=== PATIENT | male | born 1965 | race Caucasian/White ===

== ENCOUNTER 2016-11-01 22:45 | Emergency (ER) | payer MEDICAID ==
[2016-11-01] MEDS ORDERED: Acetaminophen/HYDROcodone 325-10 MG Tab PO ONE (23:59)
[2016-11-01] MEDS ORDERED: Cyclobenzaprine 10 MG Tab PO ONE (23:59)
--- NOTE | 2016-11-02 00:29 | EDM.PDOC ---
ED HISTORY OF PRESENT ILLNESS - General Chief Complaint: Respiratory Problem Stated Complaint: FELL, HIT CHEST ON ROCK, TROUBLE BREATHING Time Seen by Provider: 11/01/16 23:10 Source of Information: Reports: Patient History Limitations: Reports: No limitations - History of Present Illness INITIAL COMMENTS - FREE TEXT/NARRATIVE: c/o of chest discomfort anterior and pain with inspiration. Fishing earlier and slipped and fell , sticking mid upper chest on rock. red area to upper chest. No c/o f other injury. Severity: moderate Location, General: Reports: chest Improves with: Reports: Immobilization Worsens with: Reports: Movement Context, General: Reports: Other (fall) Associated Symptoms (General): Reports: chest pain, shortness of breath. 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 [No Known Home Meds] 11/01/16 [History] Past Medical History - Infectious Disease History Infectious Disease History: Reports: Mumps Social & Family History - Family History Family Medical History: Noncontributory - Tobacco Use Smoking Status *Q: Never Smoker - Caffeine Use Caffeine Use: Reports: Coffee - Recreational Drug Use Recreational Drug Use: No ED ROS GENERAL - Review of Systems Review Of Systems: See Below Constitutional: Reports: no symptoms HEENT: Reports: No symptoms Respiratory: Reports: Pleuritic Chest Pain Cardiovascular: Reports: No symptoms Endocrine: Reports: no symptoms GI/Abdominal: Reports: No symptoms : Reports: no symptoms Musculoskeletal: Reports: other (anterior mid upper chest) Neurological: Reports: No Symptoms Psychiatric: Reports: No symptoms ED EXAM, GENERAL - Physical Exam Exam: See Below Exam Limited By: No limitations General Appearance: alert, moderate distress Eye Exam: bilateral eye: EOMI Ears: normal external exam Nose: normal inspection. No: nasal drainage Throat/Mouth: Normal inspection Head: atraumatic, normocephalic Neck: normal inspection, full range of motion Respiratory/Chest: no respiratory distress, lungs clear, decreased breath sounds Cardiovascular: normal peripheral pulses GI/Abdominal: normal bowel sounds, soft, non tender Extremities: normal inspection Neurological: alert, oriented, normal cognition Skin Exam: Warm, Dry, Intact, Wound/incision (superficial transverse abrasion mid to upper chest.) Course - Vital Signs Last Recorded V/S: Last Vital Signs Temp 98.7 F 11/02/16 00:53 Pulse 98 11/02/16 00:53 Resp 16 11/02/16 00:53 BP 141/80 H 11/02/16 00:53 Pulse Ox 100 11/02/16 00:53 - Orders/Labs/Meds Meds: Medications Discontinued Medications Generic Name Dose Route Start Last Admin Trade Name Freq PRN Reason Stop Dose Admin Hydrocodone Bitart/Acetaminophen Confirm 11/02/16 00:42 11/02/16 01:11 Logan 325-10 Mg Administered 11/02/16 00:43 Not Given Dose 2 tab .ROUTE .STK-MED ONE Cyclobenzaprine HCl Confirm 11/02/16 00:42 11/02/16 01:11 Flexeril Administered 11/02/16 00:43 Not Given Dose 20 mg .ROUTE .STK-MED ONE - Radiology Interpretation Free Text/Narrative:: No riib fracture noted Departure - Departure Time of Disposition: 00:26 Disposition: Home, Self-Care 01 Condition: good Clinical Impression: Sternal contusion Qualifiers: Encounter type: initial encounter Qualified Code(s): S20.20XA - Contusion of thorax, unspecified, initial encounter Instructions: Chest Contusion, [id number] Forms: ED Department Discharge Additional Instructions: hydrocodone 10/325 one every 6 hours as needed for pain # 6 Ibuprofen 600mg every 6 hours as needed for moderate pain deep breathing exercises every 2 hours while awake follow up if worsening pain, or difficulty breathing
[2016-11-02] MEDS ORDERED: Cyclobenzaprine 10 MG Tab ONE (00:42)
[2016-11-02] MEDS ORDERED: Acetaminophen/HYDROcodone 325-10 MG Tab ONE (00:42)
[2016-11-02 00:54] VITALS: BP 141/80
== END 2016-11-02 00:52 | disposition home or self-care (01) ==
LOC: DL.ED 22:45
DX: S20.20XA Contusion of thorax, unspecified, initial encounter (principal); Z88.2 Allergy status to sulfonamides; W01.10XA Fall on same level from slipping, tripping and stumbling with subsequent striking against unspecified object, initial encounter
CPT/HCPCS: 71111; 99284; A9270

== ENCOUNTER 2016-12-20 19:45 | Emergency (ER) | payer MEDICAID ==
[2016-12-20 19:51] VITALS: BP 138/82
[2016-12-20] MEDS ORDERED: Lidocaine/EPINEPHrine/Tetracaine Soln 5 ML Each TOP ONE (20:16)
--- NOTE | 2016-12-20 20:16 | EDM.PDOC ---
ED HPI GENERAL MEDICAL PROBLEM - General Chief Complaint: General Stated Complaint: BIT INTO BLOOD VESSEL MOUTH, [id number] Time Seen by Provider: 12/20/16 20:09 Source of Information: Reports: Patient History Limitations: Reports: No Limitations - History of Present Illness INITIAL COMMENTS - FREE TEXT/NARRATIVE: c/o bleeding to inner lower lip. States bit bottom lip approximately 10 minutes UI ARCHITECT has had blood vessel like "blood blister " for long time. Onset: Today Severity: Mild - Related Data Allergies Allergy/AdvReac Type Severity Reaction Status Date / Time sulfamethoxazole Allergy UNKNOWN Verified 12/20/16 19:51 [From Bactrim] trimethoprim [From Bactrim] Allergy UNKNOWN Verified 12/20/16 19:51 Home Meds: Home Meds . [No Known Home Meds] 11/01/16 [History] Past Medical History - Past Health History Medical/Surgical History: Denies Medical/Surgical History - Infectious Disease History Infectious Disease History: Reports: Mumps Social & Family History - Family History Family Medical History: Noncontributory - Tobacco Use Smoking Status *Q: Never Smoker - Caffeine Use Caffeine Use: Reports: Coffee - Recreational Drug Use Recreational Drug Use: No ED ROS GENERAL - Review of Systems Review Of Systems: ROS reveals no pertinent complaints other than HPI. ED EXAM, GENERAL - Physical Exam Exam: See Below Exam Limited By: No Limitations General Appearance: Alert, Anxious, Mild Distress Ears: Normal External Exam Nose: Normal Inspection Throat/Mouth: Other (puncture lesion to right inner lower lip with active bleeding) Head: Atraumatic, Normocephalic Neck: Normal Inspection Respiratory/Chest: No Respiratory Distress Cardiovascular: Regular Rate, Rhythm Course - Vital Signs Last Recorded V/S: Last Vital Signs Temp 98.2 F 12/20/16 19:48 Pulse 110 H 12/20/16 19:48 Resp 18 12/20/16 19:48 BP 138/82 12/20/16 19:48 Pulse Ox 96 12/20/16 19:48 - Orders/Labs/Meds Meds: Medications Discontinued Medications Generic Name Dose Route Start Last Admin Trade Name Freq PRN Reason Stop Dose Admin Lidocaine/Tetracaine 5 ml 12/20/16 20:16 12/20/16 20:24 Let Soln TOP 12/20/16 20:17 5 ml ONETIME ONE Administration - Re-Assessments/Exams Free Text/Narrative Re-Assessment/Exam: 12/21/16 02:51 Pressure applied with slight decrease, continued bleeding. Controlled with application and point pressure of Lido/epi/tetracain with sterile swap. Departure - Departure Time of Disposition: 21:01 Disposition: Home, Self-Care 01 Condition: good Clinical Impression: Mucosal bleeding - Discharge Information Instructions: Oral Mucositis Referrals: PCP,None [Ordering Only Provider] - Forms: ED Department Discharge Additional Instructions: cool pack to lower lip no use of straws x 24 hours, apply pressure if recurrent bleeding return if unable to stop avoid hard foods x 24 hours and care with brushing lower teeth on right side
== END 2016-12-20 21:27 | disposition home or self-care (01) ==
LOC: DL.ED 19:45
DX: R58 Hemorrhage, not elsewhere classified (principal); Z88.2 Allergy status to sulfonamides; Z88.8 Allergy status to other drugs, medicaments and biological substances
CPT/HCPCS: 99282; A9270

== ENCOUNTER 2019-07-25 01:32 | Emergency (ER) | payer MEDICAID ==
[2019-07-25] MEDS ORDERED: fentaNYL 100 MCG/2 ML SDV IVPUSH ONE (01:43)
[2019-07-25] MEDS ORDERED: LORazepam 2 MG/ML Syringe IVPUSH ONE (01:43)
[2019-07-25] MEDS ORDERED: HYDROmorphone 1 MG/ML Syringe IVPUSH ONE (02:41)
--- NOTE | 2019-07-25 02:41 | EDM.PDOC ---
"ED HPI GENERAL MEDICAL PROBLEM - General Chief Complaint: Lower Extremity Injury/Pain Stated Complaint: FELL ON ICE Time Seen by Provider: 07/25/19 06:14 Source of Information: Reports: Patient History Limitations: Reports: No Limitations - History of Present Illness INITIAL COMMENTS - FREE TEXT/NARRATIVE: ED via w/c with c/o pain to right hip and back, states getting out of [place] and slipped on ice landing towards left side. but pain with movement and spasm type. Initially called EMS but requested their assistance to private vehicle. No loss of consciousness Did not hit hed. 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 [No Known Home Meds] 11/01/16 [History] Past Medical History - Past Health History Medical/Surgical History: Denies Medical/Surgical History Musculoskeletal History: Reports: Arthritis, Fracture, Other (See Below) Other Musculoskeletal History: L4 L5 had twisted it iin the past. Needs carpal tunnel to maribel hands. Neurological History: Reports: Concussion - Infectious Disease History Infectious Disease History: Reports: Mumps Social & Family History - Family History Family Medical History: Noncontributory - Tobacco Use Smoking Status *Q: Never Smoker - Caffeine Use Caffeine Use: Reports: Coffee - Recreational Drug Use Recreational Drug Use: No Review of Systems - Review of Systems Review Of Systems: Comprehensive ROS is negative, except as noted in HPI. ED EXAM, GENERAL - Physical Exam Exam: See Below Exam Limited By: No Limitations General Appearance: Alert, Moderate Distress (yelling, moaning), Obese Eye Exam: Bilateral Eye: EOMI, PERRL Course - Vital Signs Last Recorded V/S: Last Vital Signs Temp 97.4 F 07/25/19 05:46 Pulse 72 07/25/19 05:46 Resp 14 07/25/19 05:46 BP 114/69 07/25/19 05:46 Pulse Ox 100 07/25/19 05:46 - Orders/Labs/Meds Orders: Active Orders 24 hr Category Date Time Status Lumbar Spine wo Cont [CT] Urgent Exams 07/25/19 02:43 Taken Pelvis wo Cont [CT] Urgent Exams 07/25/19 02:42 Taken Meds: Medications Discontinued Medications Generic Name Dose Route Start Last Admin Trade Name Deejay PRN Reason Stop Dose Admin Fentanyl 50 mcg 07/25/19 01:43 07/25/19 01:59 Sublimaze IVPUSH 07/25/19 01:44 50 mcg ONETIME ONE Administration Hydromorphone HCl 1 mg 07/25/19 02:41 07/25/19 03:23 Dilaudid IVPUSH 07/25/19 02:42 1 mg ONETIME ONE Administration Lorazepam 1 mg 07/25/19 01:43 07/25/19 01:58 Ativan IVPUSH 07/25/19 01:44 1 mg ONETIME ONE Administration - Radiology Interpretation Free Text/Narrative:: [facility] Final Radiology Report Call: [phone] assistance Online chat: [email or web address] Name: EVIE GOLD Age: 54Years M Date: 07/25/2019 SSN: -- : [id number] Study: CT SPINE LUMBAR WO Requesting Physician: REY JUARES Images: [id number] Addl Studies: Provided Clinical History: Contrast: Without Contrast Medium: Contrast Amount: Contrast Method: Page 1 of 2 PROCEDURE INFORMATION: Exam: CT Lumbar Spine Without Contrast Exam date and time: 07/25/2019 3:08 AM Age: 54 years old Clinical indication: Other: Fell getting out of suv, pain TECHNIQUE: Imaging protocol: Computed tomography images of the lumbar spine without contrast. Radiation optimization: All CT scans at this facility use at least one of these dose optimization techniques: automated exposure control; mA and/or kV adjustment per patient size (includes targeted exams where dose is matched to clinical indication); or iterative reconstruction. COMPARISON: No relevant prior studies available. FINDINGS: Vertebrae: No acute fracture. Normal alignment. Discs/Spinal canal/Neural foramina: The lumbar spine demonstrates moderate discogenic and apophyseal joint degenerative changes at multiple levels. There is loss of disc space height from L3 through S1 most severe at L5-S1. There is no focal disc herniation or cord compression. No significant canal stenosis. Soft tissues: Unremarkable. IMPRESSION: 1. No acute fracture or dislocation. 2. Mild lumbar spondylosis changes as discussed above Thank you for allowing us to participate in the care of your patient. EVIE GOLD | Final Radiology Report CONFIDENTIALITY STATEMENT This report is intended only for use by the referring physician, and only in accordance with law. If you received this in error, call [phone]. Page 2 of 2 Dictated and Authenticated by: Donovan Linn [facility] Final Radiology Report Call: [phone] assistance Online chat: [email or web address] Name: EVIE GOLD Age: 54Years M Date: 07/25/2019 SSN: -- : 1965 Study: CT PELVIS WO Requesting Physician: REY JUARES Images: [id number] Addl Studies: Provided Clinical History: Contrast: Without Contrast Medium: Contrast Amount: Contrast Method: CONFIDENTIALITY STATEMENT This report is intended only for use by the referring physician, and only in accordance with law. If you received this in error, call [phone]. Page 1 of 1 PROCEDURE INFORMATION: Exam: CT Pelvis Without Contrast; Skeletal Exam date and time: 07/25/2019 3:08 AM Age: 54 years old Clinical indication: Other: Fell getting out of suv, pain TECHNIQUE: Imaging protocol: Computed tomography images of the pelvis without contrast. Exam focused on the skeletal structures. Radiation optimization: All CT scans at this facility use at least one of these dose optimization techniques: automated exposure control; mA and/or kV adjustment per patient size (includes targeted exams where dose is matched to clinical indication); or iterative reconstruction. COMPARISON: No relevant prior studies available. FINDINGS: Bones/joints: Unremarkable. No acute fracture. No dislocation. Soft tissues: Unremarkable. IMPRESSION: No acute findings. Thank you for allowing us to participate in the care of your patient. Dictated and Authenticated by: Donovan Linn MD 07/25/2019 6:00 AM Central Time ([place] & [place]) - Re-Assessments/Exams Free Text/Narrative Re-Assessment/Exam: 07/25/19 06:20 Preference to lie on right side, increased pain with movement. Improved following medication pain decreased to 4/10, sleeping awaiting for radiology report. Studies unremarkable, results reviewed with patient and family. Up ambulatory steady, slow. Departure - Departure Time of Disposition: 06:04 Disposition: Home, Self-Care 01 Condition: Good Clinical Impression: Muscle spasm, Acute right hip pain Fall Qualifiers: Encounter type: initial encounter Qualified Code(s): W19.XXXA - Unspecified fall, initial encounter - Discharge Information *PRESCRIPTION DRUG MONITORING PROGRAM REVIEWED*: No *COPY OF PRESCRIPTION DRUG MONITORING REPORT IN PATIENT MICAH: No Instructions: Musculoskeletal Pain Forms: ED Department Discharge Additional Instructions: Ibuprofen 600mg every 6 hours as needed flexeril 10mg one every 8 hours as needed for spasm hydrocodone 10/325 one every 6 hours as needed for severe pain rest light activity ice to hip clinic follow up on sunday if continued pain Sepsis Event Note - Evaluation Sepsis Screening Result: No Definite Risk - Focused Exam Vital Signs: Vital Signs Temp Pulse Resp BP Pulse Ox 07/25/19 05:46 97.4 F 72 14 114/69 100 07/25/19 03:27 97.8 F 63 14 102/57 L 96 07/25/19 01:43 98.6 F 80 16 136/76 96 Date Exam was Performed: 07/25/19 Time Exam was Performed: 06:03 - My Orders Last 24 Hours: My Active Orders 07/25/19 02:42 Pelvis wo Cont [CT] Urgent 07/25/19 02:43 Lumbar Spine wo Cont [CT] Urgent - Assessment/Plan Last 24 Hours: My Active Orders 07/25/19 02:42 Pelvis wo Cont [CT] Urgent 07/25/19 02:43 Lumbar Spine wo Cont [CT] Urgent"
[2019-07-25 05:47] VITALS: BP 114/69; PULSE 72
[2019-07-25] MEDS ORDERED: Ketorolac 30 MG/ML SDV IVPUSH ONE (06:07)
== END 2019-07-25 06:22 | disposition home or self-care (01) ==
LOC: DL.ED 01:32
DX: M25.551 Pain in right hip (principal); M62.838 Other muscle spasm; M19.90 Unspecified osteoarthritis, unspecified site; Z88.2 Allergy status to sulfonamides; W00.0XXA Fall on same level due to ice and snow, initial encounter
CPT/HCPCS: 72131; 72192; 96374; 96375; 99284; J1170; J1885; J2060; J3010

== ENCOUNTER 2020-11-21 21:18 | Emergency (ER) | payer BC, MEDICAID ==
--- NOTE | 2020-11-21 21:59 | EDM.PDOC ---
"ED HPI GENERAL MEDICAL PROBLEM - General Stated Complaint: TOTAL EXHAUSTION/UPSET STOMACH Time Seen by Provider: 11/21/20 22:55 Source of Information: Reports: Patient History Limitations: Reports: No Limitations - History of Present Illness INITIAL COMMENTS - FREE TEXT/NARRATIVE: This 55 yo male patient reports to the ED due to abdominal pain. The patient reports his pain is a burning pain on both sides of his abdomen that has been present all day. The patient also reports he has had pressure in his head that has come and gone since he had COVID in May. The patient also reports he has been having difficulties remembering things since May also. The patient's family reports the patient had confused conversation prior to coming to the ED. The patient also reports a brief episode of chest pain earlier today. The patient reports he has not been able to eat or drink much due to the abdominal pain. Onset: Unknown/Unsure Duration: Constant, Other Location: Reports: Head, Chest, Abdomen Quality: Reports: Ache, Pressure, Other Severity: Moderate Improves with: Reports: None Worsens with: Reports: None Context: Reports: Other Associated Symptoms: Reports: Nausea/Vomiting Right Headache Pain Score (Numeric/FACES): 6 - Related Data Allergies Allergy/AdvReac Type Severity Reaction Status Date / Time sulfamethoxazole Allergy Difficulty Verified 11/21/20 22:28 [From Bactrim] Breathing trimethoprim [From Bactrim] Allergy Difficulty Verified 11/21/20 22:28 Breathing Home Meds: Home Meds Ibuprofen [Advil] 200 mg PO ASDIRECTED PRN 11/21/20 [History] Past Medical History - Past Health History Medical/Surgical History: Denies Medical/Surgical History Musculoskeletal History: Reports: Arthritis, Fracture, Other (See Below) Other Musculoskeletal History: L4 L5 had twisted it iin the past. Needs carpal tunnel to maribel hands. Neurological History: Reports: Concussion - Infectious Disease History Infectious Disease History: Reports: Mumps Social & Family History - Family History Family Medical History: No Pertinent Family History - Caffeine Use Caffeine Use: Reports: Coffee ED ROS GENERAL - Review of Systems Review Of Systems: Comprehensive ROS is negative, except as noted in HPI. ED EXAM, GENERAL - Physical Exam Exam: See Below Exam Limited By: No Limitations General Appearance: Alert, WD/WN, No Apparent Distress Eye Exam: Bilateral Eye: EOMI, Normal Inspection, PERRL Ears: Normal External Exam, Normal Canal, Hearing Grossly Normal, Normal TMs Nose: Normal Inspection, Normal Mucosa, No Blood Throat/Mouth: Normal Inspection, Normal Lips, Normal Teeth, Normal Gums, Normal Oropharynx, Normal Voice, No Airway Compromise Head: Atraumatic, Normocephalic Neck: Normal Inspection, Supple, Non-Tender, Full Range of Motion Respiratory/Chest: No Respiratory Distress, Lungs Clear, Normal Breath Sounds, No Accessory Muscle Use, Chest Non-Tender Cardiovascular: Normal Peripheral Pulses, Regular Rate, Rhythm, No Edema, No Gallop, No JVD, No Murmur, No Rub GI/Abdominal: Normal Bowel Sounds, Soft, Non-Tender, No Organomegaly, No Distention, No Abnormal Bruit, No Mass (Male) Exam: Deferred Rectal (Males) Exam: Deferred Back Exam: Normal Inspection, Full Range of Motion, NT Extremities: Normal Inspection, Normal Range of Motion, Non-Tender, Normal Capillary Refill, No Pedal Edema Neurological: Alert, Oriented, CN II-XII Intact, Normal Cognition, Normal Gait, Normal Reflexes, No Motor/Sensory Deficits Psychiatric: Normal Affect, Normal Mood Skin Exam: Warm, Dry, Intact, Normal Color, No Rash Lymphatic: No Adenopathy #1 Interpretation EKG Date: 11/21/20 Time: 21:38 Rhythm: NSR Rate (Beats/Min): 67 Raccoon: Normal P-Wave: Present QRS: Normal ST-T: Normal QT: Normal Comparison: NA - No Prior EKG Course - Vital Signs Last Recorded V/S: Last Vital Signs Temp 36.9 C 11/21/20 21:30 Pulse 73 11/21/20 21:30 Resp 14 11/21/20 21:30 BP 110/79 11/21/20 21:30 Pulse Ox 98 11/21/20 21:30 - Orders/Labs/Meds Orders: Active Orders 24 hr Category Date Time Status EKG Documentation Completion [RC] STAT Care 11/21/20 21:33 Active CULTURE BLOOD [BC] Stat Lab 11/21/20 21:50 Results Labs: Laboratory Tests 11/21/20 11/21/20 11/21/20 Range/Units 21:35 21:50 21:50 WBC 6.5 (5.0-10.0) 10^3/uL RBC 4.27 L (4.6-6.2) 10^6/uL Hgb 13.2 L (14.0-18.0) g/dL Hct 40.5 (40.0-54.0) % MCV 94.8 (80-100) fL MCH 30.9 (27.0-34.0) pg MCHC 32.6 L (33.0-35.0) g/dL Plt Count 159 (150-450) 10^3/uL Neut % (Auto) 85.2 H (42.2-75.2) % Lymph % (Auto) 9.1 L (20.5-50.1) % [place] % (Auto) 5.4 (2-8) % Eos % (Auto) 0.3 L (1.0-3.0) % Baso % (Auto) 0.0 (0.0-1.0) % Sodium 135 L (136-145) mmol/L Potassium 4.2 (3.5-5.1) mmol/L Chloride 99 (98-107) mmol/L Carbon Dioxide 27 (21-32) mmol/L Anion Gap 13.2 H (7-13) mEq/L BUN 21 H (7-18) mg/dL Creatinine 0.85 (0.70-1.30) mg/dL Est Cr Clr Drug Dosing 69.44 mL/min Estimated GFR (MDRD) > 60 BUN/Creatinine Ratio 24.7 (No establ ref range) Glucose 127 H (70-99) mg/dL Lactic Acid (0.4-2.0) mmol/L Calcium 7.9 L (8.5-10.1) mg/dL Total Bilirubin 0.7 (0.2-1.0) mg/dL AST 19 (15-37) U/L ALT 27 (16-63) U/L Alkaline Phosphatase 67 (46-116) U/L Ammonia (11-32) umol/L Troponin I < 0.017 (0.000-0.056) ng/mL Total Protein 6.6 (6.4-8.2) g/dL Albumin 3.6 (3.4-5.0) g/dL Globulin 3.0 Albumin/Globulin Ratio 1.2 Amylase 79 (25-115) U/L Lipase 81 (73-393) U/L Urine Color (YELLOW) Urine Appearance (CLEAR) Urine pH (5.0-9.0) Ur Specific [place] (1.005-1.030) Urine Protein (NEGATIVE) Urine Glucose (UA) (NEGATIVE) Urine Ketones (NEGATIVE) Urine Occult Blood (NEGATIVE) Urine Nitrite (NEGATIVE) Urine Bilirubin (NEGATIVE) Urine Urobilinogen (0.2-1.0) mg/dL Ur Leukocyte Esterase (NEGATIVE) Salicylates (2.8-20(Therapeutic)) mg/dL Acetaminophen 0 L (10-30 (Therapeutic)) ug/mL Ethyl Alcohol < 3 (0) mg/dL Influenza Type A RNA Negative (NEGATIVE) Influenza Type B RNA Negative (NEGATIVE) SARS-CoV-2 RNA (NAT) Negative (NEGATIVE) 11/21/20 11/21/20 11/21/20 Range/Units 21:50 21:50 21:50 WBC (5.0-10.0) 10^3/uL RBC (4.6-6.2) 10^6/uL Hgb (14.0-18.0) g/dL Hct (40.0-54.0) % MCV (80-100) fL MCH (27.0-34.0) pg MCHC (33.0-35.0) g/dL Plt Count (150-450) 10^3/uL Neut % (Auto) (42.2-75.2) % Lymph % (Auto) (20.5-50.1) % [place] % (Auto) (2-8) % Eos % (Auto) (1.0-3.0) % Baso % (Auto) (0.0-1.0) % Sodium (136-145) mmol/L Potassium (3.5-5.1) mmol/L Chloride (98-107) mmol/L Carbon Dioxide (21-32) mmol/L Anion Gap (7-13) mEq/L BUN (7-18) mg/dL Creatinine (0.70-1.30) mg/dL Est Cr Clr Drug Dosing mL/min Estimated GFR (MDRD) BUN/Creatinine Ratio (No establ ref range) Glucose (70-99) mg/dL Lactic Acid 0.9 (0.4-2.0) mmol/L Calcium (8.5-10.1) mg/dL Total Bilirubin (0.2-1.0) mg/dL AST (15-37) U/L ALT (16-63) U/L Alkaline Phosphatase (46-116) U/L Ammonia 19 (11-32) umol/L Troponin I (0.000-0.056) ng/mL Total Protein (6.4-8.2) g/dL Albumin (3.4-5.0) g/dL Globulin Albumin/Globulin Ratio Amylase (25-115) U/L Lipase (73-393) U/L Urine Color (YELLOW) Urine Appearance (CLEAR) Urine pH (5.0-9.0) Ur Specific [place] (1.005-1.030) Urine Protein (NEGATIVE) Urine Glucose (UA) (NEGATIVE) Urine Ketones (NEGATIVE) Urine Occult Blood (NEGATIVE) Urine Nitrite (NEGATIVE) Urine Bilirubin (NEGATIVE) Urine Urobilinogen (0.2-1.0) mg/dL Ur Leukocyte Esterase (NEGATIVE) Salicylates < 2.8 L (2.8-20(Therapeutic)) mg/dL Acetaminophen (10-30 (Therapeutic)) ug/mL Ethyl Alcohol (0) mg/dL Influenza Type A RNA (NEGATIVE) Influenza Type B RNA (NEGATIVE) SARS-CoV-2 RNA (NAT) (NEGATIVE) 11/21/20 Range/Units 23:06 WBC (5.0-10.0) 10^3/uL RBC (4.6-6.2) 10^6/uL Hgb (14.0-18.0) g/dL Hct (40.0-54.0) % MCV (80-100) fL MCH (27.0-34.0) pg MCHC (33.0-35.0) g/dL Plt Count (150-450) 10^3/uL Neut % (Auto) (42.2-75.2) % Lymph % (Auto) (20.5-50.1) % [place] % (Auto) (2-8) % Eos % (Auto) (1.0-3.0) % Baso % (Auto) (0.0-1.0) % Sodium (136-145) mmol/L Potassium (3.5-5.1) mmol/L Chloride (98-107) mmol/L Carbon Dioxide (21-32) mmol/L Anion Gap (7-13) mEq/L BUN (7-18) mg/dL Creatinine (0.70-1.30) mg/dL Est Cr Clr Drug Dosing mL/min Estimated GFR (MDRD) BUN/Creatinine Ratio (No establ ref range) Glucose (70-99) mg/dL Lactic Acid (0.4-2.0) mmol/L Calcium (8.5-10.1) mg/dL Total Bilirubin (0.2-1.0) mg/dL AST (15-37) U/L ALT (16-63) U/L Alkaline Phosphatase (46-116) U/L Ammonia (11-32) umol/L Troponin I (0.000-0.056) ng/mL Total Protein (6.4-8.2) g/dL Albumin (3.4-5.0) g/dL Globulin Albumin/Globulin Ratio Amylase (25-115) U/L Lipase (73-393) U/L Urine Color Yellow (YELLOW) Urine Appearance Clear (CLEAR) Urine pH 5.5 (5.0-9.0) Ur Specific [place] >= 1.030 (1.005-1.030) Urine Protein Negative (NEGATIVE) Urine Glucose (UA) Negative (NEGATIVE) Urine Ketones Negative (NEGATIVE) Urine Occult Blood Negative (NEGATIVE) Urine Nitrite Negative (NEGATIVE) Urine Bilirubin Negative (NEGATIVE) Urine Urobilinogen 1.0 (0.2-1.0) mg/dL Ur Leukocyte Esterase Negative (NEGATIVE) Salicylates (2.8-20(Therapeutic)) mg/dL Acetaminophen (10-30 (Therapeutic)) ug/mL Ethyl Alcohol (0) mg/dL Influenza Type A RNA (NEGATIVE) Influenza Type B RNA (NEGATIVE) SARS-CoV-2 RNA (NAT) (NEGATIVE) Meds: Medications Discontinued Medications Generic Name Dose Route Start Last Admin Trade Name Freq PRN Reason Stop Dose Admin Sodium Chloride 1,000 mls @ 999 mls/hr 11/21/20 23:05 11/21/20 23:14 Normal Saline IV 11/22/20 00:05 999 mls/hr .BOLUS ONE Administration - Radiology Interpretation Free Text/Narrative:: [facility] [place] [facility] Final Radiology Report Call: [phone] assistance Online chat: [email or web address] Name: JAIRO GOLD Age: 55Years M Date: 11/21/2020 SSN: -- : [id number] Study: CT HEAD WO CONT Requesting Physician: Yariel Juan Images: [id number] Addl Studies: Provided Clinical History: Altered mentation Contrast: Without Contrast Medium: Contrast Amount: Contrast Method: Page 1 of 2 PROCEDURE INFORMATION: Exam: CT Head Without Contrast Exam date and time: 11/21/2020 11:40 PM Age: 55 years old Clinical indication: Other: Altered mentation TECHNIQUE: Imaging protocol: Computed tomography of the head without contrast. Radiation optimization: All CT scans at this facility use at least one of these dose optimization techniques: automated exposure control; mA and/or kV adjustment per patient size (includes targeted exams where dose is matched to clinical indication); or iterative reconstruction. COMPARISON: No relevant prior studies available. FINDINGS: Brain: Normal. No hemorrhage. Unremarkable white matter. No mass effect. Cerebral ventricles: No ventriculomegaly. Bones/joints: Unremarkable. No acute fracture. Paranasal sinuses: Convexities are seen on the floors of the maxillary sinuses bilaterally compatible with mucous retention cysts. The largest is seen on right measuring approximately 16 mm in diameter. Mastoid air cells: Visualized mastoid air cells are well aerated. Soft tissues: Unremarkable. IMPRESSION: There are no acute intracranial findings. Thank you for allowing us to participate in the care of your patient. JAIRO GOLD | Final Radiology Report CONFIDENTIALITY STATEMENT This report is intended only for use by the referring physician, and only in accordance with law. If you received this in error, call [phone]. Page 2 of 2 Dictated and Authenticated by: Delvin Miller MD 11/21/2020 11:54 PM Central Time ([place] & [place]) Departure - Departure Time of Disposition: 01:06 Disposition: Home, Self-Care 01 Condition: Fair Clinical Impression: Gastroenteritis - Discharge Information *PRESCRIPTION DRUG MONITORING PROGRAM REVIEWED*: Not Applicable *COPY OF PRESCRIPTION DRUG MONITORING REPORT IN PATIENT MICAH: Not Applicable Forms: ED Department Discharge Care Plan Goals: The patient was advised of the examination, lab, EKG and CT results during the visit. The patient was encouraged to stick to a BRAT diet (bananas, rice, applesauce and toast) with small frequent sips of fluids over the next 48 hours. If the patient has any additional symptoms or concerns, the patient should either return to the emergency department or visit his primary care facility. Sepsis Event Note (ED) - Focused Exam Vital Signs: Vital Signs Temp Pulse Resp BP Pulse Ox 11/21/20 21:30 36.9 C 73 14 110/79 98 - My Orders Last 24 Hours: My Active Orders 11/21/20 21:33 EKG Documentation Completion [RC] STAT 11/21/20 21:50 CULTURE BLOOD [BC] Stat - Assessment/Plan Last 24 Hours: My Active Orders 11/21/20 21:33 EKG Documentation Completion [RC] STAT 11/21/20 21:50 CULTURE BLOOD [BC] Stat"
[2020-11-21 22:29] LABS: ANION GAP 13.2 mEq/L (7-13); CHLORIDE,CL 99 mmol/L (98-107); SODIUM,NA 135 mmol/L (136-145)
[2020-11-21 22:33] LABS: ACETAMINOPHEN 0 ug/mL (10-30 (Therapeutic))
[2020-11-21 22:36] LABS: CORONAVIRUS COVID-19 NAA NEGATIVE (NEGATIVE)
[2020-11-21] MEDS ORDERED: Sodium Chloride 0.9% 1,000 ML IV ONE (23:05)
--- NOTE | 2020-11-21 23:54 | CT ---
PROCEDURE INFORMATION: Exam: CT Head Without Contrast Exam date and time: 11/21/2020 11:40 PM Age: 55 years old Clinical indication: Other: Altered mentation TECHNIQUE: Imaging protocol: Computed tomography of the head without contrast. Radiation optimization: All CT scans at this facility use at least one of these dose optimization techniques: automated exposure control; mA and/or kV adjustment per patient size (includes targeted exams where dose is matched to clinical indication); or iterative reconstruction. COMPARISON: No relevant prior studies available. FINDINGS: Brain: Normal. No hemorrhage. Unremarkable white matter. No mass effect. Cerebral ventricles: No ventriculomegaly. Bones/joints: Unremarkable. No acute fracture. Paranasal sinuses: Convexities are seen on the floors of the maxillary sinuses bilaterally compatible with mucous retention cysts. The largest is seen on right measuring approximately 16 mm in diameter. Mastoid air cells: Visualized mastoid air cells are well aerated. Soft tissues: Unremarkable. IMPRESSION: There are no acute intracranial findings.
[2020-11-22 01:32] VITALS: BP 117/65; PULSE 58
== END 2020-11-22 01:28 | disposition home or self-care (01) ==
LOC: DL.ED 21:18
DX: K52.9 Noninfective gastroenteritis and colitis, unspecified (principal); Z20.822 Contact with and (suspected) exposure to COVID-19; Z86.16 Personal history of COVID-19; Z88.2 Allergy status to sulfonamides; Z88.1 Allergy status to other antibiotic agents
CPT/HCPCS: 0240U; 36415; 70450; 80053; 80143; 80179; 80307; 81003; 82140; 82150; 83605; 83690; 84484; 85025; 87040; 93005; 93010; 99284; 99285-25; J7030

== ENCOUNTER 2025-03-22 15:18 | Emergency (ER) | payer BC, MEDICAID ==
[2025-03-22 15:59] LABS: APPEARANCE,URINE CLEAR (CLEAR); GLUCOSE,URINE NEGATIVE (NEGATIVE); OCCULT BLOOD,URINE TRACE-INTACT (NEGATIVE)
[2025-03-22 16:07] LABS: EPITHELIAL CELLS,URINE RARE /HPF (NOT SEEN)
[2025-03-22] MEDS: Take Home: Nitrofurantoin Monohydrate/Macrocrystalline 100 MG, 6 Cap Pack PO ONE (16:54)
[2025-03-22 16:59] VITALS: BP 134/84; PULSE 86
== END 2025-03-22 16:56 | disposition home or self-care (01) ==
LOC: DL.ED 15:18
DX: N30.01 Acute cystitis with hematuria (principal); H83.8X2 Other specified diseases of left inner ear; Z88.2 Allergy status to sulfonamides; Z79.899 Other long term (current) drug therapy
CPT/HCPCS: 51798; 74176; 81001; 99284; A9270